=== PATIENT | male | born 1980 | race Caucasian/White ===

== ENCOUNTER 2024-10-28 18:31 | Emergency (ER) | payer OTHER, SELFPAY ==
[2024-10-28 18:35] VITALS: BP 144/94; PULSE 58; RESP 20; TEMP 36.6; O2SAT 98; BMI 35.9
--- NOTE | 2024-10-28 18:43 | DI.RAD.S_ITS ---
PROCEDURE: XR CHEST 1V INDICATIONS: r/o pna TECHNIQUE: One view of the chest was acquired. COMPARISON: None. FINDINGS: Surgical changes and devices: None. Lungs and pleura: Lungs are clear. No pleural effusions or pneumothorax. Mediastinum: Mediastinal contours appear normal. Heart size is normal. Bones and chest wall: No suspicious bony lesions. Overlying soft tissues appear unremarkable. IMPRESSION: No acute cardiopulmonary abnormality is seen. Dictated by: Hakeem Carvajal M.D. on 10/28/2024 at 20:10 Approved by: Hakeem aCrvajal M.D. on 10/28/2024 at 20:10
[2024-10-28 19:26] LABS: Influenza A - CEPHEID Flu A NEGATIVE (NEGATIVE); Influenza B - CEPHEID Flu B NEGATIVE (NEGATIVE); Respiratory Syncytial Virus POSITIVE (Negative)
[2024-10-28 19:29] LABS: COVID-19 CEPHEID 4-PLEX PCR Negative (Negative)
== END 2024-10-28 20:28 | disposition left against medical advice (07) ==
PROVIDERS: Emergency Provider Emergency Medicine
DX: B33.8 Other specified viral diseases (principal); R05.9 Cough, unspecified
CPT/HCPCS: 0241U; 71045; 99281